=== PATIENT | female | born 1985 | race Caucasian/White ===

== ENCOUNTER 2021-02-20 08:00 | Inpatient (IN) | payer OTHER ==
[2021-02-21] MEDS ORDERED: ONDANSETRON 4 MG/2 ML VIAL IVPUSH PRN (07:46)
[2021-02-21 07:47] VITALS: BMI 24.5
[2021-02-21] MEDS ORDERED: morphine SULFATE/PF 1 MG/2 ML (2cc Syringe - QUVA) ONE (07:56)
[2021-02-21] MEDS ORDERED: ONDANSETRON 4 MG/2 ML VIAL ONE (08:08)
[2021-02-21] MEDS ORDERED: ceFAZolin SODIUM 1 GM VIAL ONE (08:08)
[2021-02-21] MEDS ORDERED: PHENYLEPHRINE HCL 10 MG/1 ML SINGLE DOSE VIAL ONE (08:35)
[2021-02-21] MEDS ORDERED: OXYTOCIN 10 UNITS/ML VIAL ONE (08:44)
[2021-02-21] MEDS ORDERED: CITRIC ACID/SODIUM CITRATE 30 ML UNIT-DOSE CUP PO ONE (09:38)
[2021-02-21] MEDS ORDERED: OXYTOCIN 20 UNITS in 0.9% NS 20 UNIT/1,000 ML INFUS.BAG IV ONE (09:38)
[2021-02-21] MEDS ORDERED: ELECTROLYTE-148 SOLN 500 ML IV ONE (09:38)
[2021-02-21] MEDS ORDERED: METHYLERGONOVINE MALEATE 0.2 MG/1 ML AMP IM PRN (09:45)
[2021-02-21] MEDS ORDERED: ACETAMINOPHEN 325 MG TABLET (FP) PO PRN (09:45)
[2021-02-21] MEDS ORDERED: SENNOSIDES/DOCUSATE COMBO (SENNA PLUS) TABLET (UD) PO PRN (09:45)
[2021-02-21] MEDS ORDERED: ELECTROLYTE-148 SOLN 1,000 ML IV SCH (09:45)
[2021-02-21] MEDS ORDERED: OXYTOCIN 20 UNITS in 0.9% NS 20 UNIT/1,000 ML INFUS.BAG IV SCH (09:45)
[2021-02-21] MEDS: PRENATAL VITAMINS W/ FOLIC ACID TABLET (FP) PO SCH (10:20)
[2021-02-21] MEDS: IBUPROFEN 800 MG/8 ML IJ IVPB PRN (11:08)
[2021-02-21] MEDS ORDERED: IBUPROFEN 800 MG/8 ML IJ IVPB ONE (11:11)
[2021-02-21] MEDS ORDERED: oxyCODONE HCL 5 MG TABLET PO PRN ×2 (21:45)
[2021-02-22] MEDS: IBUPROFEN 800 MG/8 ML IJ IVPB PRN (02:11)
[2021-02-22 07:10] LABS: BASO % 0.3 % (0-2.0); EOS % 1.5 % (0-4.5); HEMATOCRIT 35.4 % (32.4-45.2); LYMPH % 15.1 % (8-40); MCH 28.6 pg (25.7-33.7); MEAN PLT VOLUME 6.8 fl (7.5-11.1); MONO % 4.9 % (3.8-10.2); NEUT % 78.2 % (42.8-82.8); PLATELET COUNT 218 10^3/uL (134-434); RBC 4.21 M/mm3 (3.60-5.2); RDW 16.2 % (11.6-15.6); WHITE BLOOD COUNT 11.4 K/mm3 (4.0-10.0)
[2021-02-22] MEDS ORDERED: BISACODYL 10 MG SUPP.RECT RC PRN (09:45)
[2021-02-22] MEDS: SIMETHICONE 80 MG TAB.CHEW (FP) PO PRN (10:59)
[2021-02-22] MEDS: IBUPROFEN 600 MG TABLET (FP) PO PRN ×3 (10:59→21:19)
[2021-02-22] MEDS: PRENATAL VITAMINS W/ FOLIC ACID TABLET (FP) PO SCH (11:03)
[2021-02-22 22:25] VITALS: TEMP 97.9
[2021-02-23] MEDS: IBUPROFEN 600 MG TABLET (FP) PO PRN (08:20)
[2021-02-23] MEDS: SIMETHICONE 80 MG TAB.CHEW (FP) PO PRN (08:20)
[2021-02-23] MEDS: PRENATAL VITAMINS W/ FOLIC ACID TABLET (FP) PO SCH (09:30)
[2021-02-23 10:52] VITALS: BP 110/72; PULSE 90
== END 2021-02-23 14:50 | disposition home or self-care (01) | DRG 540 ==
LOC: JLDR 02-21 06:25 → J3W 02-21 11:45
PROVIDERS: ADMIT Obstetrics & Gynecology; ATTEND Obstetrics & Gynecology
PROC: 10D00Z1 Extraction of Products of Conception, Low, Open Approach (ICD-10-PCS; principal; 2021-02-21)
DX: O34.219 Maternal care for unspecified type scar from previous cesarean delivery (principal); Z3A.39 39 weeks gestation of pregnancy; Z37.0 Single live birth
CPT/HCPCS: 36415; 85025; 88307-TC